=== PATIENT | female | born 1985 | race Asian ===

== ENCOUNTER 2023-10-03 22:02 | Emergency (ER) | payer BC ==
[~2023-10-03] VITALS: Ht 175.3 cm; Wt 61.2 kg
[2023-10-03 23:01] VITALS: BP 126/78; TEMP 98.2
[2023-10-04 01:10] VITALS: O2SAT 98
== END 2023-10-04 01:08 | disposition home or self-care (01) ==
LOC: ER 22:09
DX: S62.661A Nondisplaced fracture of distal phalanx of left index finger, initial encounter for closed fracture (principal); Z88.0 Allergy status to penicillin; W04.XXXA Fall while being carried or supported by other persons, initial encounter; Y93.89 Activity, other specified; Y92.89 Other specified places as the place of occurrence of the external cause; Y99.8 Other external cause status
CPT/HCPCS: 73130-TC